=== PATIENT | female | born 1950 | race Caucasian/White ===

== ENCOUNTER 2019-04-02 15:00 | Emergency (ER) | payer MEDICARE, OTHER ==
[~2019-04-02] VITALS: Ht 162.6 cm; Wt 72.3 kg
[2019-04-02 15:46] LABS: BASOPHILS # (AUTO) 0.1 X10'3 (0-0.2); BASOPHILS % (AUTO) 0.5 % (0-1); EOSINOPHILS # (AUTO) 0.1 X10'3 (0-0.9); EOSINOPHILS % (AUTO) 0.6 % (0-6); HEMATOCRIT 42.2 % (35.0-45.0); HEMOGLOBIN 14.3 g/dl (12.0-16.0); LYMPHOCYTES # (AUTO) 2.8 X10'3 (1.1-4.8); LYMPHOCYTES % (AUTO) 23.9 % (21-51); MEAN CORPUSCULAR HEMOGLOBIN 26.9 PG (27.0-31.0); MEAN CORPUSCULAR HGB CONC 33.8 g/dL (33.0-36.5); MEAN CORPUSCULAR VOLUME 79.6 FL (78-98); MEAN PLATELET VOLUME 7.8 FL (7.4-10.4); MONOCYTES # (AUTO) 0.5 X10'3 (0-0.9); NEUTROPHILS # (AUTO) 8.4 X10'3 (1.8-7.7); PLATELET COUNT 324 X10'3 (140-440); RED CELL DISTRIBUTION WIDTH 14.4 % (11.5-14.5); WHITE BLOOD COUNT 11.8 X10'3 (4.5-11.0)
[2019-04-02 15:51] LABS: PARTIAL THROMBOPLASTIN TIME 25 SECONDS (22-32)
[2019-04-02 16:11] LABS: ANION GAP 6 (8-16); CHLORIDE 101 MMOL/L (99-107); GLUCOSE 111 MG/DL (70-104); POTASSIUM 3.7 MMOL/L (3.5-5.1); SODIUM 139 MMOL/L (135-145); TOTAL CARBON DIOXIDE 31.8 MMOL/L (24-32)
[2019-04-02 16:12] LABS: ALANINE AMINOTRANSFERASE 29 U/L (12-78); ALBUMIN 4.2 G/DL (3.4-5.0); ALKALINE PHOSPHATASE 109 IU/L (46-116); ASPARTATE AMINO TRANSFERASE 15 U/L (10-37); BILIRUBIN,TOTAL 0.4 MG/DL (0.1-1.0); BLOOD UREA NITROGEN 16 MG/DL (7-18); BUN/CREATININE RATIO 14.8 (6.6-38.0); CALCIUM 9.9 MG/DL (8.5-10.1); CREATININE 1.08 MG/DL (0.40-0.90); TOTAL PROTEIN 8.4 G/DL (6.4-8.2); eGFR 50 ML/MIN
--- NOTE | 2019-04-02 17:09 | NUR ---
DR LOPEZ AT BEDSIDE EVALUATE PT, PT IS 68 YO FEMALE REFERRED TO ER FROM CLINIC, PT HAS HAD CHEST PRESSURE, PALPITATIONS, "POUNDING HEADACHE" OFF AND ON [id number], HAS BEEN TO CLINIC 3TIMES, TREATED FOR SINUS PROBLEMS, PT IS GCS 15, ALERT AND ORIENTED, RESP EVEN AND UNLABORED, SKIN P/W/D
[2019-04-02] MEDS ORDERED: METO-539 PO (17:30)
[2019-04-02 17:58] VITALS: BP 196/76
== END 2019-04-02 18:02 | disposition home or self-care (01) ==
LOC: ER 15:01
DX: R00.2 Palpitations (principal); I49.1 Atrial premature depolarization; I10 Essential (primary) hypertension; E03.9 Hypothyroidism, unspecified; Z88.8 Allergy status to other drugs, medicaments and biological substances; Z79.899 Other long term (current) drug therapy
CPT/HCPCS: 71045; 80053; 84484; 85025; 85610; 85730; 93005; 99284

== ENCOUNTER 2019-04-26 16:52 | Emergency (ER) | payer MEDICARE, OTHER ==
[~2019-04-26] VITALS: Ht 162.6 cm; Wt 72.4 kg
[~2019-04-26 16:52] MED LIST: METO-539 PO
[2019-04-26 17:27] LABS: BASOPHILS # (AUTO) 0.1 X10'3 (0-0.2); BASOPHILS % (AUTO) 0.8 % (0-1); EOSINOPHILS # (AUTO) 0.2 X10'3 (0-0.9); HEMATOCRIT 40.3 % (35.0-45.0); HEMOGLOBIN 13.4 g/dl (12.0-16.0); LYMPHOCYTES # (AUTO) 2.7 X10'3 (1.1-4.8); MEAN CORPUSCULAR HEMOGLOBIN 26.8 PG (27.0-31.0); MEAN CORPUSCULAR HGB CONC 33.3 g/dL (33.0-36.5); MEAN CORPUSCULAR VOLUME 80.3 FL (78-98); MEAN PLATELET VOLUME 7.8 FL (7.4-10.4); MONOCYTES # (AUTO) 0.5 X10'3 (0-0.9); MONOCYTES % (AUTO) 5.5 % (2-12); NEUTROPHILS # (AUTO) 5.7 X10'3 (1.8-7.7); NEUTROPHILS % (AUTO) 62.7 % (42-75); PLATELET COUNT 285 X10'3 (140-440); RED BLOOD COUNT 5.02 X10'6 (4.20-5.60); RED CELL DISTRIBUTION WIDTH 14.8 % (11.5-14.5); WHITE BLOOD COUNT 9.2 X10'3 (4.5-11.0)
[2019-04-26 17:38] LABS: ALANINE AMINOTRANSFERASE 27 U/L (12-78); ALBUMIN 4.1 G/DL (3.4-5.0); ALBUMIN/GLOBULIN RATIO 1.1 (1.1-1.5); ALKALINE PHOSPHATASE 100 IU/L (46-116); AMYLASE 90 U/L (25-115); ANION GAP 9 (8-16); ASPARTATE AMINO TRANSFERASE 16 U/L (10-37); BILIRUBIN,TOTAL 0.4 MG/DL (0.1-1.0); BLOOD UREA NITROGEN 17 MG/DL (7-18); BUN/CREATININE RATIO 16.8 (6.6-38.0); CALCIUM 9.7 MG/DL (8.5-10.1); CHLORIDE 102 MMOL/L (99-107); CREATININE 1.01 MG/DL (0.40-0.90); GLUCOSE 104 MG/DL (70-104); LIPASE 193 U/L (73-393); POTASSIUM 4.2 MMOL/L (3.5-5.1); SODIUM 141 MMOL/L (135-145); TOTAL CARBON DIOXIDE 29.9 MMOL/L (24-32); eGFR 54 ML/MIN
[2019-04-26] MEDS ORDERED: LIDOcaine 1% 30ml preserv. free vial IJ STA (18:52)
[2019-04-26] MEDS ORDERED: TRAM50TA2 PO (19:14)
[2019-04-26 19:27] VITALS: BP 151/82
== END 2019-04-26 19:31 | disposition home or self-care (01) ==
LOC: ER 16:52
DX: K80.20 Calculus of gallbladder without cholecystitis without obstruction (principal); I10 Essential (primary) hypertension; E03.9 Hypothyroidism, unspecified; M19.90 Unspecified osteoarthritis, unspecified site; Z98.890 Other specified postprocedural states; Z88.8 Allergy status to other drugs, medicaments and biological substances; Z79.899 Other long term (current) drug therapy
CPT/HCPCS: 36415; 76700; 80053; 82150; 83690; 85025; 96374; 99284; J2001

== ENCOUNTER 2023-07-11 11:22 | Inpatient (IN) | payer MEDICARE, OTHER ==
[~2023-07-11] VITALS: Ht 162.6 cm; Wt 76.0 kg
[~2023-07-11 11:22] MED LIST changes: +ALBU90AE IH; +AMLO5TAB16 PO; +AMOX-580 PO; +ANAS1TAB10 PO; +ATOR10TA70 PO; +CITA10TA22 PO; +HYDR-3964 PO; +LEVO88TA7 PO; +METO-384 PO; -METO-539 PO; +OXYB10TA30 PO; +PANT40TA54 PO; +SACC250C PO; +VENL37.589 PO; +ZOLP10TA PO
[2023-07-11] MEDS ORDERED: CefTRIAXone 2gm/D5W 50ml BAG 50 ML IV ONE (12:00)
[2023-07-11 13:05] LABS: BASOPHILS % (AUTO) 0.1 % (0-1); EOSINOPHILS % (AUTO) 0 % (0-6); HEMOGLOBIN 12.6 g/dl (12.0-16.0); LYMPHOCYTES # (AUTO) 0.4 X10'3 (1.1-4.8); LYMPHOCYTES % (AUTO) 1.7 % (21-51); MEAN CORPUSCULAR HGB CONC 33.1 g/dL (33.0-36.5); MEAN CORPUSCULAR VOLUME 81.8 FL (78-98); MEAN PLATELET VOLUME 7.9 FL (7.4-10.4); MONOCYTES # (AUTO) 0.9 X10'3 (0-0.9); NEUTROPHILS # (AUTO) 20.6 X10'3 (1.8-7.7); NEUTROPHILS % (AUTO) 94.2 % (42-75); PLATELET COUNT 251 X10'3 (140-440); RED BLOOD COUNT 4.65 X10'6 (4.20-5.60); RED CELL DISTRIBUTION WIDTH 15.3 % (11.5-14.5); WHITE BLOOD COUNT 21.9 X10'3 (4.5-11.0)
[2023-07-11 13:34] LABS: ALANINE AMINOTRANSFERASE 26 U/L (12-78); ALBUMIN 3.3 G/DL (3.4-5.0); ALBUMIN/GLOBULIN RATIO 0.9 (1.1-1.5); ALKALINE PHOSPHATASE 63 IU/L (46-116); ANION GAP 12 (8-16); ASPARTATE AMINO TRANSFERASE 18 U/L (10-37); BILIRUBIN,TOTAL 0.7 MG/DL (0.1-1.0); BLOOD UREA NITROGEN 14 MG/DL (7-18); BUN/CREATININE RATIO 11.7 (10.0-20.0); CALCIUM 9.6 MG/DL (8.5-10.1); CHLORIDE 104 MMOL/L (99-107); GLUCOSE 134 MG/DL (70-104); LIPASE 25 U/L (16-77); POTASSIUM 3.4 MMOL/L (3.5-5.1); SODIUM 143 MMOL/L (135-145); TOTAL CARBON DIOXIDE 26.8 MMOL/L (24-32); TOTAL PROTEIN 6.8 G/DL (6.4-8.2); eGFR 44 ML/MIN
[2023-07-11] MEDS: acetaminophen 1,000mg/100ml IV 100 ML IV SCH ×2 (13:35→20:00)
[2023-07-11] MEDS ORDERED: normal saline 1000ml 1,000 ML IV ONE (14:15)
[2023-07-11 15:53] LABS: BILIRUBIN,URINE NEGATIVE (Neg); CLARITY,URINE CLOUDY (Clear); COLOR,URINE YELLOW (Yellow); GLUCOSE, URINE NEGATIVE (Neg); KETONES,URINE NEGATIVE (Neg); LEUKOCYTE ESTERASE ,URINE NEGATIVE (Neg); NITRITES, URINE NEGATIVE (Neg); OCCULT BLOOD,URINE TRACE-INTACT (Neg); PROTEIN,URINE 100 mg/dl (Neg); UROBILINOGEN,URINE 0.2 E.U/dL (0.2-1.0)
[2023-07-11 16:12] LABS: UA COLLECTION TYPE CLN CATCH MIDSTREAM
[2023-07-11 16:18] LABS: SQUAMOUS EPITHELIAL CELL,UR MODERATE /LPF (FEW)
[2023-07-11 16:19] LABS: BACTERIA,URINE FEW /HPF (Neg); RBC,URINE 0-2 /HPF (0-2)
[2023-07-11] MEDS ORDERED: morphine 2 MG/ML inj. syringe IV ONE (16:35)
[2023-07-11] MEDS ORDERED: mag hydrox/Alum hydrox/simeth 30ml oral suspension PO PRN (18:05)
[2023-07-11] MEDS ORDERED: magnesium 2GM in 50ml NS 50 ML IV PRN (18:05)
[2023-07-11] MEDS ORDERED: magnesium hydroxide 30ml (MOM) UD suspension PO PRN (18:05)
[2023-07-11] MEDS ORDERED: metoclopramide 5 mg/ml inj IV PRN (18:05)
[2023-07-11] MEDS ORDERED: magnesium 4gm in 100ml NS 100 ML IV PRN (18:05)
[2023-07-11] MEDS ORDERED: magnesium Cl slow-release 64mg tablet PO PRN (18:05)
[2023-07-11] MEDS ORDERED: potassium Cl 20 mEq SR tablet PO PRN (18:05)
[2023-07-11] MEDS ORDERED: acetaminophen 325mg tablet PO PRN (18:05)
[2023-07-11] MEDS ORDERED: potassium Cl 40MEQ/1/2NS 520ml 520 ML IV PRN (18:05)
[2023-07-11] MEDS: normal saline 1000ml 1,000 ML IV SCH (18:41)
[2023-07-11 19:10] LABS: MAGNESIUM 1.5 MG/DL (1.5-2.4); POTASSIUM 3.3 MMOL/L (3.5-5.1)
[2023-07-11] MEDS ORDERED: vancomycin/NS 1 GM ADD-VANTAGE 250 ML IV SCH (20:00)
[2023-07-11] MEDS: heparin, porcine 5000 units/ml vial SQ SCH (20:48)
[2023-07-11] MEDS: docusate sod 100mg capsule PO SCH (20:48)
[2023-07-11] MEDS: K and/or MAG REPLACEMENT MC SCH (20:49)
[2023-07-11] MEDS: potassium Cl 20 mEq SR tablet PO PRN (20:49)
[2023-07-11 21:56] LABS: HEMOGLOBIN A1C 5.6 % (4.5-6.2)
[2023-07-12] MEDS: piperacillin/tazo 3.375gm/50ml 50 ML IV SCH ×3 (00:19→16:14)
[2023-07-12] MEDS: HYDROcodone/acetaminophen 5mg/325mg tablet PO PRN ×3 (00:32→20:48)
[2023-07-12] MEDS: ondansetron/PF 4mg/2ml inj IV PRN (00:33)
[2023-07-12] MEDS: potassium Cl 20 mEq SR tablet PO PRN ×4 (01:02→18:35)
[2023-07-12] MEDS: acetaminophen 1,000mg/100ml IV 100 ML IV SCH ×2 (02:00→08:00)
[2023-07-12 04:45] LABS: BASOPHILS % (AUTO) 0.1 % (0-1); EOSINOPHILS # (AUTO) 0.2 X10'3 (0-0.9); EOSINOPHILS % (AUTO) 1.4 % (0-6); HEMATOCRIT 33.2 % (35.0-45.0); HEMOGLOBIN 10.9 g/dl (12.0-16.0); LYMPHOCYTES # (AUTO) 1.4 X10'3 (1.1-4.8); LYMPHOCYTES % (AUTO) 9.7 % (21-51); MEAN CORPUSCULAR HEMOGLOBIN 27.2 PG (27.0-31.0); MEAN CORPUSCULAR HGB CONC 32.9 g/dL (33.0-36.5); MEAN CORPUSCULAR VOLUME 82.7 FL (78-98); MEAN PLATELET VOLUME 8.1 FL (7.4-10.4); MONOCYTES # (AUTO) 0.5 X10'3 (0-0.9); MONOCYTES % (AUTO) 3.7 % (2-12); NEUTROPHILS # (AUTO) 12.2 X10'3 (1.8-7.7); NEUTROPHILS % (AUTO) 85.1 % (42-75); PLATELET COUNT 190 X10'3 (140-440); RED BLOOD COUNT 4.02 X10'6 (4.20-5.60); RED CELL DISTRIBUTION WIDTH 15.6 % (11.5-14.5); WHITE BLOOD COUNT 14.4 X10'3 (4.5-11.0)
[2023-07-12 04:54] LABS: ALANINE AMINOTRANSFERASE 24 U/L (12-78); ALBUMIN 2.6 G/DL (3.4-5.0); ALBUMIN/GLOBULIN RATIO 0.8 (1.1-1.5); ALKALINE PHOSPHATASE 50 IU/L (46-116); ANION GAP 7 (8-16); ASPARTATE AMINO TRANSFERASE 17 U/L (10-37); BILIRUBIN,TOTAL 0.5 MG/DL (0.1-1.0); BLOOD UREA NITROGEN 14 MG/DL (7-18); BUN/CREATININE RATIO 13.1 (10.0-20.0); CALCIUM 7.3 MG/DL (8.5-10.1); CHLORIDE 107 MMOL/L (99-107); CHOL/HDL RATIO 2.8 (0.00-4.99); CHOLESTEROL 105 MG/DL (0-200); CREATININE 1.07 MG/DL (0.40-0.90); GLUCOSE 100 MG/DL (70-104); HDL CHOLESTEROL 38 MG/DL (35-60); LDL CHOLESTEROL 45 MG/DL (50-100); MAGNESIUM 1.5 MG/DL (1.5-2.4); PHOSPHORUS 3.1 MG/DL (2.3-4.5); POTASSIUM 3.3 MMOL/L (3.5-5.1); SODIUM 142 MMOL/L (135-145); TOTAL CARBON DIOXIDE 27.7 MMOL/L (24-32); TOTAL PROTEIN 5.7 G/DL (6.4-8.2); TRIGLYCERIDES 83 MG/DL (20-135); eCRCL 40 ML/MIN; eGFR 50 ML/MIN
[2023-07-12] MEDS: HYDROcodone/acetaminophen 10/325mg tab PO PRN (06:00)
[2023-07-12] MEDS: docusate sod 100mg capsule PO SCH ×2 (08:00→20:00)
[2023-07-12] MEDS: heparin, porcine 5000 units/ml vial SQ SCH ×2 (08:06→20:49)
[2023-07-12] MEDS: K and/or MAG REPLACEMENT MC SCH ×2 (13:02→20:00)
[2023-07-12] MEDS: normal saline 1000ml 1,000 ML IV SCH (14:05)
[2023-07-12] MEDS ORDERED: ONDA-103 PO (21:27)
[2023-07-13] MEDS: piperacillin/tazo 3.375gm/50ml 50 ML IV SCH ×2 (00:26→07:44)
[2023-07-13] MEDS: HYDROcodone/acetaminophen 10/325mg tab PO PRN ×2 (03:05→07:45)
[2023-07-13] MEDS: ondansetron/PF 4mg/2ml inj IV PRN (03:06)
[2023-07-13] MEDS: heparin, porcine 5000 units/ml vial SQ SCH ×2 (07:44→07:50)
[2023-07-13] MEDS: docusate sod 100mg capsule PO SCH (07:44)
[2023-07-13] MEDS: K and/or MAG REPLACEMENT MC SCH (07:47)
[2023-07-13] MEDS ORDERED: anastrozole 1 MG tablet PO SCH (08:00)
[2023-07-13] MEDS ORDERED: amLODIPine 5mg tablet PO SCH (09:10)
[2023-07-13] MEDS ORDERED: zolpidem 5mg tablet PO PRN (09:10)
[2023-07-13] MEDS ORDERED: non-formulary drug (Ondansetron HCl 1 TAB) PO PRN (09:10)
[2023-07-13] MEDS ORDERED: albuterol 2.5 MG/3 ML nebule NEB PRN (09:10)
[2023-07-13] MEDS ORDERED: atorvastatin 10mg tablet PO SCH (09:12)
[2023-07-13] MEDS ORDERED: levoTHYROXINE 88mcg tablet PO SCH (09:13)
[2023-07-13] MEDS ORDERED: pantoprazole 40mg Tablet.DR PO SCH (09:13)
[2023-07-13] MEDS ORDERED: venlafaxine XR 37.5mg cap (Q24H) PO SCH (09:13)
[2023-07-13] MEDS ORDERED: metoprolol succinate 25mg (24-HOUR) SR. Tablet PO SCH (09:15)
[2023-07-13 09:46] LABS: BASOPHILS % (AUTO) 0.5 % (0-1); EOSINOPHILS # (AUTO) 0.3 X10'3 (0-0.9); EOSINOPHILS % (AUTO) 3.7 % (0-6); HEMATOCRIT 34.1 % (35.0-45.0); HEMOGLOBIN 11.3 g/dl (12.0-16.0); LYMPHOCYTES % (AUTO) 26.7 % (21-51); MEAN CORPUSCULAR HEMOGLOBIN 27.1 PG (27.0-31.0); MEAN CORPUSCULAR VOLUME 82.2 FL (78-98); MEAN PLATELET VOLUME 7.6 FL (7.4-10.4); MONOCYTES # (AUTO) 0.3 X10'3 (0-0.9); MONOCYTES % (AUTO) 4.2 % (2-12); NEUTROPHILS # (AUTO) 4.8 X10'3 (1.8-7.7); NEUTROPHILS % (AUTO) 64.9 % (42-75); PLATELET COUNT 209 X10'3 (140-440); RED BLOOD COUNT 4.15 X10'6 (4.20-5.60); RED CELL DISTRIBUTION WIDTH 15.4 % (11.5-14.5); WHITE BLOOD COUNT 7.4 X10'3 (4.5-11.0)
[2023-07-13 10:04] LABS: ALANINE AMINOTRANSFERASE 20 U/L (12-78); ALBUMIN 2.8 G/DL (3.4-5.0); ALBUMIN/GLOBULIN RATIO 0.8 (1.1-1.5); ALKALINE PHOSPHATASE 50 IU/L (46-116); ANION GAP 8 (8-16); ASPARTATE AMINO TRANSFERASE 9 U/L (10-37); BILIRUBIN,TOTAL 0.4 MG/DL (0.1-1.0); BLOOD UREA NITROGEN 10 MG/DL (7-18); BUN/CREATININE RATIO 10.2 (10.0-20.0); CALCIUM 8.2 MG/DL (8.5-10.1); CHLORIDE 109 MMOL/L (99-107); CREATININE 0.98 MG/DL (0.40-0.90); GLUCOSE 87 MG/DL (70-104); MAGNESIUM 1.8 MG/DL (1.5-2.4); PHOSPHORUS 2.5 MG/DL (2.3-4.5); POTASSIUM 4.2 MMOL/L (3.5-5.1); SODIUM 143 MMOL/L (135-145); TOTAL CARBON DIOXIDE 26.2 MMOL/L (24-32); TOTAL PROTEIN 6.2 G/DL (6.4-8.2); eCRCL 44 ML/MIN; eGFR 56 ML/MIN
[2023-07-13] MEDS: normal saline 1000ml 1,000 ML IV SCH (10:13)
[2023-07-13 13:20] VITALS: BP 133/55; PULSE 61; RESP 18; TEMP 97.4; O2SAT 95
[2023-07-13] MEDS ORDERED: LEVO-65 PO (14:18)
[2023-07-14] MEDS ORDERED: CefTRIAXone 2gm/D5W 50ml BAG 50 ML IV SCH (08:00)
[2023-07-14] MEDS ORDERED: anastrozole 1 MG tablet PO SCH (08:00)
== END 2023-07-13 15:37 | disposition home or self-care (01) | DRG 872 ==
LOC: ER 11:23 → ED HOLD 18:10 → EDBEDREQ 07-12 17:38 → CANBEDREQ 07-12 18:36
PROVIDERS: ADMIT Internal Medicine; ATTEND Internal Medicine
DX: A41.9 Sepsis, unspecified organism (principal); N12 Tubulo-interstitial nephritis, not specified as acute or chronic; E03.9 Hypothyroidism, unspecified; I10 Essential (primary) hypertension; C50.911 Malignant neoplasm of unspecified site of right female breast; N30.90 Cystitis, unspecified without hematuria; I12.9 Hypertensive chronic kidney disease with stage 1 through stage 4 chronic kidney disease, or unspecified chronic kidney disease; N18.30 Chronic kidney disease, stage 3 unspecified; E83.51 Hypocalcemia; Z88.8 Allergy status to other drugs, medicaments and biological substances; Z79.899 Other long term (current) drug therapy; Z17.0 Estrogen receptor positive status [ER+]; Z85.118 Personal history of other malignant neoplasm of bronchus and lung
CPT/HCPCS: 36415; 71045; 74176; 80053; 80061; 81001; 83036; 83605; 83690; 83735; 84100; 84132; 84145; 85025; 87040; 87088; 93005; 96365; 96375; 99285; C2617; G0378; J0131; J0696; J1644; J2270; J2405; J2543; J2765; J3370; J7030